=== PATIENT | female | born 1960 | race Caucasian/White ===

== ENCOUNTER 2024-09-08 12:53 | Inpatient (IN) | payer MEDICARE, MEDICAID ==
[~2024-09-08] VITALS: Ht 162.6 cm; Wt 65.5 kg
[2024-09-08 14:23] LABS: HEMATOCRIT. 30.4 % (36.0-48.0); HEMOGLOBIN. 8.8 g/dL (12.0-16.0); MEAN CORPUSCULAR HEMOGLOBIN 22.6 pg (28.0-32.0); MEAN CORPUSCULAR HGB CONC 29.1 g/dL (31.0-37.0); MEAN CORPUSCULAR VOLUME 77.7 fL (81.0-99.0); MEAN PLATELET VOLUME 9.7 fl (7.4-10.4); PLATELET 199 x1000/uL (130-400); RED BLOOD CELL COUNT 3.91 mill/uL (4.2-5.4); RED CELL DISTRIBUTION WIDTH 24.1 % (11.6-14.6); WHITE BLOOD COUNT 8.3 x1000/uL (4.5-11.0)
[2024-09-08 14:29] LABS: DIFFERENTIAL COMMENT 1
[2024-09-08 14:31] LABS: CALCIUM 8.2 mg/dL (8.7-10.4)
[2024-09-08 14:35] LABS: INR 1.2; PARTIAL THROMBOPLASTIN TIME 27.3 sec (23.4-31.0); PROTHROMBIN TIME 13.1 sec (9.6-11.0)
[2024-09-08 14:36] LABS: CREATININE 1.3 mg/dL (0.6-1.0)
[2024-09-08 14:39] LABS: POTASSIUM 6.3 mEq/L (3.5-5.1)
[2024-09-08] MEDS: CALCIUM GLUCONATE 100MG/ML 10ML VIAL IV ONE (15:01)
[2024-09-08 15:04] VITALS: PULSE 78; RESP 22; O2SAT 97
[2024-09-08] MEDS: ALBUTEROL (0.083%) 2.5MG/3ML NEB HHN ONE (15:04)
[2024-09-08] MEDS: INSULIN REGULAR (HUMULIN R) 1000UNITS/10ML VIAL IV ONE (15:05)
[2024-09-08] MEDS: SODIUM BICARBONATE 8.4% 50MEQ/50ML SYR IV ONE (15:06)
[2024-09-08] MEDS: DEXTROSE 50% WATER 50ML SYRINGE IV ONE (15:06)
[2024-09-08 15:17] LABS: PLATELET ESTIMATE NORMAL
[2024-09-08 15:18] LABS: HYPOCHROMASIA 1+
[2024-09-08] MEDS: SODIUM ZIRCONIUM CYCLOSILICATE 10GM/PACKET PO ONE (15:18)
[2024-09-08 15:19] LABS: ANISOCYTOSIS 1+
[2024-09-08 16:25] VITALS: RESP 37
[2024-09-08] MEDS: FUROSEMIDE 40MG/4ML VIAL IVP NR (16:28)
[2024-09-08 17:31] LABS: BG BASE EXCESS 7.9 mmol/L (-2.0-3.0); BG CARBOXYHEMOGLOBIN 1.2 % (0.5-1.5); BG DEOXYHEMOGLOBIN 1.9 % (0.0-5.0); BG FRACTION INSPIRED OXYGEN 100; BG HCO3 ACT 33.9 mmol/L (21.0-28.0); BG METHEMOGLOBIN 0.2 % (0.5-1.5); BG OXYGEN SATURATION 98.1 % (94.0-98.0); BG OXYHEMOGLOBIN 96.7 % (94.0-98.0); BG PCO2 56.4 mmHg (32.0-45.0); BG PH 7.397 (7.350-7.450); BG PO2 110.4 mmHg (83.0-108.0); BG SAMPLE SITE RIGHT RADIAL; BG TOTAL HEMOGLOBIN 9.2 g/dL (12.0-16.0); BG VENT MODE MASK - BIPAP
[2024-09-08] MEDS: BLOOD SUGAR DIAGNOSTIC STRIP TEST SCH (17:48)
[2024-09-08] MEDS: PIPERACILLIN/TAZO 3.375G/50ML 50 ML IV SCH (18:18)
[2024-09-08 18:40] LABS: POTASSIUM 5.4 mEq/L (3.5-5.1)
[2024-09-08 19:42] VITALS: RESP 28
[2024-09-08] MEDS ORDERED: FUROSEMIDE 20MG/2ML VIAL IVP SCH (21:00)
[2024-09-08] MEDS: FUROSEMIDE 40MG/4ML VIAL IVP SCH (22:00)
[2024-09-08] MEDS: GUAIFENESIN 600MG ER TABLET PO SCH (22:06)
[2024-09-08 23:45] VITALS: RESP 25
[2024-09-09] VITALS (18 sets, daily range): BP systolic 100–123; BP diastolic 58–65; PULSE 65–83; RESP 15–28; TEMP 36.14–36.44736; O2SAT 76–100
[2024-09-09] MEDS ORDERED: CLONIDINE 0.1MG TABLET PO PRN (00:30)
[2024-09-09] MEDS ORDERED: ACETAMINOPHEN 325MG TABLET PO PRN (00:30)
[2024-09-09] MEDS ORDERED: ONDANSETRON HCL 4MG/2ML INJ IV PRN (00:30)
[2024-09-09 03:15] LABS: *AMPHETAMINES SCREEN URINE NEGATIVE (NEGATIVE); *BARBITURATES SCREEN URINE NEGATIVE (NEGATIVE); *BENZODIAZEPINES SCREEN URINE NEGATIVE (NEGATIVE); *COCAINE SCREEN URINE NEGATIVE (NEGATIVE); METHADONE URINE SCREEN NEGATIVE (NEGATIVE); OPIATES URINE SCREEN NEGATIVE (NEGATIVE)
[2024-09-09 03:16] LABS: CANNABINOID URINE SCREEN NEGATIVE (NEGATIVE); ECSTASY MDMA SCREEN URINE NEGATIVE (NEGATIVE); PHENCYCLIDINE URINE SCREEN NEGATIVE (NEGATIVE)
[2024-09-09] MEDS: PANTOPRAZOLE SODIUM 40 MG/VIAL IV SCH (08:24)
[2024-09-09] MEDS: DEXTROSE 50% WATER 50ML SYRINGE IV PRN (08:24)
[2024-09-09] MEDS: ENOXAPARIN 40MG/0.4ML SYR SUBCUT SCH (08:26)
[2024-09-09] MEDS: HYDROCODONE/ACETAMINOPHEN 5/325MG TABLET PO PRN (09:05)
[2024-09-09] MEDS: FUROSEMIDE 40MG/4ML VIAL IVP SCH (12:45)
[2024-09-09] MEDS: DEXTROSE 50% WATER 50ML SYRINGE IV NR (15:01)
[2024-09-09] MEDS: DEXT 10% WATER 1,000 ML IV SCH (15:17)
[2024-09-09 15:52] LABS: POTASSIUM 6.1 mEq/L (3.5-5.1)
[2024-09-09 15:54] LABS: CALCIUM 8.6 mg/dL (8.7-10.4)
[2024-09-09 15:58] LABS: CREATININE 1.6 mg/dL (0.6-1.0)
[2024-09-09 16:01] LABS: CREATINE KINASE MB FRACTION 4.7 ng/mL (0.5-3.6)
[2024-09-09] MEDS: BLOOD SUGAR DIAGNOSTIC STRIP TEST SCH (16:28)
[2024-09-09] MEDS: SODIUM ZIRCONIUM CYCLOSILICATE 10GM/PACKET PO NR (16:32)
[2024-09-09 17:21] LABS: BG BASE EXCESS 3.8 mmol/L (-2.0-3.0); BG CARBOXYHEMOGLOBIN 0.3 % (0.5-1.5); BG DEOXYHEMOGLOBIN 5.9 % (0.0-5.0); BG FRACTION INSPIRED OXYGEN 100; BG HCO3 ACT 30.1 mmol/L (21.0-28.0); BG METHEMOGLOBIN 0.1 % (0.5-1.5); BG OXYGEN SATURATION 94.1 % (94.0-98.0); BG OXYHEMOGLOBIN 93.7 % (94.0-98.0); BG PCO2 54.2 mmHg (32.0-45.0); BG PH 7.362 (7.350-7.450); BG PO2 76.1 mmHg (83.0-108.0); BG SAMPLE SITE RIGHT RADIAL; BG TOTAL HEMOGLOBIN 9.7 g/dL (12.0-16.0); BG VENT MODE MASK - BIPAP
[2024-09-09] MEDS ORDERED: NALOXONE HCL 0.4MG/ML VIAL IV PRN (18:15)
[2024-09-09 18:36] LABS: HEMOGLOBIN. 8.4 g/dL (12.0-16.0); MEAN CORPUSCULAR HEMOGLOBIN 23.3 pg (28.0-32.0); MEAN CORPUSCULAR VOLUME 77.7 fL (81.0-99.0); MEAN PLATELET VOLUME 9.4 fl (7.4-10.4); PLATELET 146 x1000/uL (130-400); RED BLOOD CELL COUNT 3.61 mill/uL (4.2-5.4); RED CELL DISTRIBUTION WIDTH 25.4 % (11.6-14.6); WHITE BLOOD COUNT 4.7 x1000/uL (4.5-11.0)
[2024-09-09 18:39] LABS: DIFFERENTIAL COMMENT 1
[2024-09-09 18:51] LABS: CHLORIDE 103 mEq/L (98-107); POTASSIUM 5.1 mEq/L (3.5-5.1); SODIUM 138 mEq/L (136-145)
[2024-09-09 18:52] LABS: CALCIUM 8.4 mg/dL (8.7-10.4); CARBON DIOXIDE 32 mEq/L (21-32)
[2024-09-09 18:57] LABS: CREATININE 1.6 mg/dL (0.6-1.0); GLUCOSE 118 mg/dL (70-105); UREA NITROGEN BLOOD 53 mg/dL (9-23)
[2024-09-09 18:58] LABS: CREATINE KINASE MB FRACTION 4.9 ng/mL (0.5-3.6)
[2024-09-09 18:59] LABS: ALANINE AMINOTRANSFERASE 22 IU/L (10-49); ALBUMIN 3.2 g/dL (3.2-4.8); ASPARTATE AMINOTRANSFERASE 20 IU/L (<34); BILIRUBIN TOTAL 0.4 mg/dL (0.1-1.0); PROTEIN TOTAL 5.4 g/dL (6.0-8.3)
[2024-09-09 19:39] LABS: ANISOCYTOSIS 2+; HYPOCHROMASIA 1+; MICROCYTOSIS 1+; PLATELET ESTIMATE NORMAL
[2024-09-09] MEDS: IPRATROPIUM/ALBUTEROL 0.5-3(2.5)MG/3ML NEB HHN PRN (20:42)
[2024-09-09 23:16] LABS: CLARITY URINE CLOUDY (CLEAR); COLOR URINE YELLOW (YELLOW); GLUCOSE URINE NEGATIVE (NEGATIVE); KETONES URINE NEGATIVE (NEGATIVE); LEUKOCYTE ESTERASE URINE 1+ (NEGATIVE); NITRITE URINE NEGATIVE (NEGATIVE); OCCULT BLOOD URINE 2+ (NEGATIVE); PROTEIN URINE 1+ (NEGATIVE); SPECIFIC GRAVITY URINE 1.013 (1.005-1.030); UROBILINOGEN URINE 0.2 E.U./dL (0.2-1.0)
[2024-09-10] VITALS (13 sets, daily range): BP systolic 84–110; BP diastolic 44–68; PULSE 79–84; RESP 18–28; TEMP 36.05844–36.50292; O2SAT 67–82
[2024-09-10 05:48] LABS: SQUAMOUS EPITHELIAL CELL URINE FEW /lpf (RARE/1+)
[2024-09-10 05:51] LABS: RBC URINE 25-50 /hpf (0-2)
[2024-09-10 05:52] LABS: BACTERIA URINE TRACE
[2024-09-10 08:53] LABS: HEMOGLOBIN. 7.9 g/dL (12.0-16.0); MEAN CORPUSCULAR HEMOGLOBIN 23.5 pg (28.0-32.0); MEAN CORPUSCULAR HGB CONC 29.4 g/dL (31.0-37.0); MEAN PLATELET VOLUME 9.8 fl (7.4-10.4); PLATELET 152 x1000/uL (130-400); RED BLOOD CELL COUNT 3.37 mill/uL (4.2-5.4); RED CELL DISTRIBUTION WIDTH 25.7 % (11.6-14.6); WHITE BLOOD COUNT 6.8 x1000/uL (4.5-11.0)
[2024-09-10 08:55] LABS: DIFFERENTIAL COMMENT 1
[2024-09-10 10:51] LABS: BG BASE EXCESS -0.7 mmol/L (-2.0-3.0); BG CARBOXYHEMOGLOBIN 0.9 % (0.5-1.5); BG DEOXYHEMOGLOBIN 7.4 % (0.0-5.0); BG FRACTION INSPIRED OXYGEN 100; BG HCO3 ACT 26.8 mmol/L (21.0-28.0); BG OXYGEN SATURATION 92.5 % (94.0-98.0); BG OXYHEMOGLOBIN 91.7 % (94.0-98.0); BG PCO2 60.2 mmHg (32.0-45.0); BG PH 7.266 (7.350-7.450); BG SAMPLE SITE RIGHT RADIAL; BG TOTAL HEMOGLOBIN 9.1 g/dL (12.0-16.0); BG VENT MODE MASK - BIPAP
[2024-09-10 13:36] LABS: ANISOCYTOSIS 2+; PLATELET ESTIMATE NORMAL
[2024-09-10 14:25] LABS: POTASSIUM 5.7 mEq/L (3.5-5.1)
[2024-09-10] MEDS: METHYLPREDNISOLONE SOD SUCC 40MG/ML (ACT-O-VIAL) IV SCH (14:26)
[2024-09-10 14:32] LABS: CREATININE 1.7 mg/dL (0.6-1.0)
[2024-09-11] VITALS (9 sets, daily range): BP systolic 96–105; BP diastolic 57–62; PULSE 80–85; RESP 6–26; TEMP 35.8362–36.61404; O2SAT 71–74
[2024-09-11 06:31] LABS: POTASSIUM 4.7 mEq/L (3.5-5.1)
[2024-09-11 06:33] LABS: CALCIUM 8.2 mg/dL (8.7-10.4)
[2024-09-11 06:36] LABS: HEMOGLOBIN. 8.2 g/dL (12.0-16.0); MEAN CORPUSCULAR HEMOGLOBIN 23.5 pg (28.0-32.0); MEAN CORPUSCULAR HGB CONC 30.3 g/dL (31.0-37.0); MEAN CORPUSCULAR VOLUME 77.6 fL (81.0-99.0); MEAN PLATELET VOLUME 9.7 fl (7.4-10.4); PLATELET 116 x1000/uL (130-400); RED BLOOD CELL COUNT 3.48 mill/uL (4.2-5.4); RED CELL DISTRIBUTION WIDTH 26.3 % (11.6-14.6); WHITE BLOOD COUNT 6.5 x1000/uL (4.5-11.0)
[2024-09-11 06:38] LABS: CREATININE 1.8 mg/dL (0.6-1.0)
[2024-09-11 07:45] LABS: DIFFERENTIAL COMMENT 1
[2024-09-11] MEDS: IPRATROPIUM/ALBUTEROL 0.5-3(2.5)MG/3ML NEB HHN SCH (08:38)
[2024-09-11 13:58] LABS: BG BASE EXCESS 3.1 mmol/L (-2.0-3.0); BG CARBOXYHEMOGLOBIN 0.8 % (0.5-1.5); BG DEOXYHEMOGLOBIN 6.9 % (0.0-5.0); BG FRACTION INSPIRED OXYGEN 100; BG HCO3 ACT 29.8 mmol/L (21.0-28.0); BG METHEMOGLOBIN 0.3 % (0.5-1.5); BG PCO2 57.1 mmHg (32.0-45.0); BG PH 7.335 (7.350-7.450); BG PO2 71.7 mmHg (83.0-108.0); BG SAMPLE SITE RIGHT RADIAL; BG TOTAL HEMOGLOBIN 9.2 g/dL (12.0-16.0); BG TOTAL RESPIRATORY RATE 24 b/min; BG VENT MODE MASK - BIPAP
[2024-09-11 15:09] LABS: ANISOCYTOSIS 2+; MICROCYTOSIS 2+; PLATELET ESTIMATE SLIGHTLY DECREASED
[2024-09-11 15:20] LABS: OVALOCYTES 1+
[2024-09-11 20:50] LABS: HEPATITIS B SURFACE ANTIGEN NEGATIVE (Negative)
[2024-09-11 21:11] LABS: HEPATITIS B CORE AB IGM NEGATIVE (Negative)
[2024-09-11 21:14] LABS: HEPATITIS A AB IGM NEGATIVE (Negative)
[2024-09-11 21:15] LABS: HEPATITIS C AB NON REACTIVE (Neg) (Negative)
[2024-09-12] VITALS (44 sets, daily range): BP systolic 35–135; BP diastolic 13–108; PULSE 64–147; RESP 8–41; TEMP 35.5584–36.61404; O2SAT 66–99
[2024-09-12 07:50] LABS: POTASSIUM 4.1 mEq/L (3.5-5.1)
[2024-09-12 07:51] LABS: CALCIUM 8.4 mg/dL (8.7-10.4); HEMATOCRIT. 28.4 % (36.0-48.0); HEMOGLOBIN. 8.4 g/dL (12.0-16.0); MEAN CORPUSCULAR HEMOGLOBIN 23.3 pg (28.0-32.0); MEAN CORPUSCULAR HGB CONC 29.7 g/dL (31.0-37.0); MEAN CORPUSCULAR VOLUME 78.6 fL (81.0-99.0); MEAN PLATELET VOLUME 9.6 fl (7.4-10.4); PLATELET 115 x1000/uL (130-400); RED BLOOD CELL COUNT 3.61 mill/uL (4.2-5.4); RED CELL DISTRIBUTION WIDTH 25.6 % (11.6-14.6); WHITE BLOOD COUNT 9.4 x1000/uL (4.5-11.0)
[2024-09-12 07:56] LABS: CREATININE 1.6 mg/dL (0.6-1.0)
[2024-09-12 08:47] LABS: DIFFERENTIAL COMMENT 1
[2024-09-12 09:12] LABS: COMPLEMENT C3 101 mg/dL (82-167); COMPLEMENT C4 31 mg/dL (12-38)
[2024-09-12] MEDS ORDERED: HYDR200T35 PO (09:54)
[2024-09-12] MEDS: ENOXAPARIN 30MG/0.3ML SYR SUBCUT SCH (10:25)
[2024-09-12] MEDS: HYDROXYCHLOROQUINE SULFATE 200MG TABLET PO SCH (10:50)
[2024-09-12] MEDS ORDERED: VANCOMYCIN 1.25GM PMX (XELLIA) 250 ML IV NR (12:00)
[2024-09-12] MEDS ORDERED: LIDOCAINE HCL 1% 10 MG/ML 10ML VIAL ONE ×2 (13:29→13:34)
[2024-09-12] MEDS ORDERED: HEPARIN 1000 UNITS/ML 10ML ONE (13:34)
[2024-09-12 14:24] LABS: ALANINE AMINOTRANSFERASE 29 IU/L (10-49); ALBUMIN 3.3 g/dL (3.2-4.8); ASPARTATE AMINOTRANSFERASE 36 IU/L (<34); BILIRUBIN DIRECT 0.1 mg/dL (<=3.0); BILIRUBIN TOTAL 0.3 mg/dL (0.1-1.0); PROTEIN TOTAL 5.7 g/dL (6.0-8.3)
[2024-09-12 14:41] LABS: PLATELET ESTIMATE SLIGHTLY DECREASED
[2024-09-12 14:42] LABS: ANISOCYTOSIS 2+; MICROCYTOSIS 1+
[2024-09-12 15:07] LABS: ANTI-NUCLEAR ANTIBODIES DIRECT Positive (Negative)
[2024-09-12] MEDS: NOREPINEPHRINE 32 MG in SODIUM CHLORIDE 0.9% 218 ML IV PRN (16:18)
[2024-09-12] MEDS ORDERED: VASOPRESSIN 20 UNIT in SODIUM CHLORIDE 0.9% 99 ML IV PRN (17:30)
[2024-09-12 19:10] LABS: BG BASE EXCESS -2.4 mmol/L (-2.0-3.0); BG CARBOXYHEMOGLOBIN 0.3 % (0.5-1.5); BG DEOXYHEMOGLOBIN 13.7 % (0.0-5.0); BG FRACTION INSPIRED OXYGEN 100; BG HCO3 ACT 24.3 mmol/L (21.0-28.0); BG METHEMOGLOBIN 0.3 % (0.5-1.5); BG OXYGEN SATURATION 86.2 % (94.0-98.0); BG OXYHEMOGLOBIN 85.7 % (94.0-98.0); BG PCO2 50.7 mmHg (32.0-45.0); BG PH 7.299 (7.350-7.450); BG PO2 56.2 mmHg (83.0-108.0); BG SAMPLE SITE RIGHT RADIAL; BG TOTAL HEMOGLOBIN 10.7 g/dL (12.0-16.0); BG VENT MODE VENT - AC
[2024-09-12] MEDS: PROPOFOL 10MG/ML 100ML 100 ML IV PRN (20:09)
[2024-09-12] MEDS ORDERED: PIPERACILLIN/TAZO 3.375G/50ML IV SCH (21:00)
[2024-09-12] MEDS ORDERED: CEFEPIME HCL 1000MG VIAL IM SCH (21:00)
[2024-09-12 21:05] LABS: LACTIC ACID 5.2 mmol/L (0.4-2.0)
[2024-09-12] MEDS: CEFEPIME 1GM/50ML 50 ML IV SCH (21:44)
[2024-09-12] MEDS: PHENYLEPHRINE 50MG/250ML PMX 250 ML IV PRN (22:10)
[2024-09-12] MEDS ORDERED: PHENYLEPHRINE 50MG/250ML PMX 250 ML IV SCH (23:15)
[2024-09-12] MEDS ORDERED: EPINEPHRINE 10 MG in SODIUM CHLORIDE 0.9% 240 ML IV PRN (23:15)
[2024-09-12] MEDS: DEXT 10% WATER 1,000 ML IV SCH (23:47)
[2024-09-13] VITALS (17 sets, daily range): BP systolic 0–123; BP diastolic 0–111; PULSE 0–109; RESP 0–53
[2024-09-13 00:03] LABS: BG BASE EXCESS -13.1 mmol/L (-2.0-3.0); BG CARBOXYHEMOGLOBIN 0.8 % (0.5-1.5); BG DEOXYHEMOGLOBIN 44.5 % (0.0-5.0); BG FRACTION INSPIRED OXYGEN 100; BG HCO3 ACT 17.8 mmol/L (21.0-28.0); BG METHEMOGLOBIN 0.1 % (0.5-1.5); BG OXYGEN SATURATION 55.1 % (94.0-98.0); BG OXYHEMOGLOBIN 54.6 % (94.0-98.0); BG PCO2 74.9 mmHg (32.0-45.0); BG PH 6.995 (7.350-7.450); BG PO2 42.9 mmHg (83.0-108.0); BG SAMPLE SITE RIGHT BRACHIAL; BG TOTAL HEMOGLOBIN 8.1 g/dL (12.0-16.0); BG TOTAL RESPIRATORY RATE 25 b/min; BG VENT MODE VENT - AC
[2024-09-13] MEDS ORDERED: DOPAMINE 800MG PREMIX (DOUBLE) 250 ML IV PRN (00:45)
[2024-09-13] MEDS ORDERED: DOPAMINE 400MG/250ML PREMIX 250 ML IV ONE (00:47)
[2024-09-13] MEDS ORDERED: NITROGLYCERIN OINT 1GM/INCH UDPKT TD SCH (06:00)
[2024-09-13] MEDS ORDERED: FUROSEMIDE 20MG/2ML VIAL IVP SCH (09:00)
[2024-09-14 06:16] LABS: G6PD RBC 3.85 x10E6/uL (3.77-5.28)
[2024-09-14 13:11] LABS: ANTI-DNA DOUBLE STRANDED QUANT < 1 IU/mL (0-9); RNP ANTIBODY 7.7 AI (0.0-0.9); SMITH ANTIBODY 0.4 AI (0.0-0.9)
== END 2024-09-13 05:00 | DRG 208 ==
LOC: ER 13:07 → EDBEDREQ 13:47 → 5EST 15:01 → EDBEDREQ 15:24 → EDBEDREQTM 15:24 → EDBEDREQSVC 21:43 → CVICU 09-12 15:18
PROVIDERS: ADMIT Internal Medicine; ATTEND Internal Medicine
PROC: 5A0935A Assistance with Respiratory Ventilation, Less than 24 Consecutive Hours, High Flow/Velocity Cannula (ICD-10-PCS; 2024-09-08)
PROC: 5A09457 Assistance with Respiratory Ventilation, 24-96 Consecutive Hours, Continuous Positive Airway Pressure (ICD-10-PCS; principal; 2024-09-09)
PROC: 5A1935Z Respiratory Ventilation, Less than 24 Consecutive Hours (ICD-10-PCS; 2024-09-12)
PROC: 0BH17EZ Insertion of Endotracheal Airway into Trachea, Via Natural or Artificial Opening (ICD-10-PCS; 2024-09-12)
PROC: 02HV33Z Insertion of Infusion Device into Superior Vena Cava, Percutaneous Approach (ICD-10-PCS; 2024-09-12)
PROC: B548ZZA Ultrasonography of Superior Vena Cava, Guidance (ICD-10-PCS; 2024-09-12)
PROC: 5A1D70Z Performance of Urinary Filtration, Intermittent, Less than 6 Hours Per Day (ICD-10-PCS; 2024-09-12)
PROC: 5A12012 Performance of Cardiac Output, Single, Manual (ICD-10-PCS; 2024-09-13)
DX: J96.02 Acute respiratory failure with hypercapnia (principal); J18.9 Pneumonia, unspecified organism; I50.43 Acute on chronic combined systolic (congestive) and diastolic (congestive) heart failure; N18.6 End stage renal disease; I13.2 Hypertensive heart and chronic kidney disease with heart failure and with stage 5 chronic kidney disease, or end stage renal disease; N17.9 Acute kidney failure, unspecified; E87.1 Hypo-osmolality and hyponatremia; I73.01 Raynaud's syndrome with gangrene; N39.0 Urinary tract infection, site not specified; R18.8 Other ascites; K74.60 Unspecified cirrhosis of liver; S61.203A Unspecified open wound of left middle finger without damage to nail, initial encounter; Z99.2 Dependence on renal dialysis; E87.5 Hyperkalemia; S39.82XA Other specified injuries of lower back, initial encounter; E83.51 Hypocalcemia; M32.9 Systemic lupus erythematosus, unspecified; D50.9 Iron deficiency anemia, unspecified; D69.6 Thrombocytopenia, unspecified; X58.XXXA Exposure to other specified factors, initial encounter; I95.9 Hypotension, unspecified; I27.20 Pulmonary hypertension, unspecified; E16.2 Hypoglycemia, unspecified; Z79.82 Long term (current) use of aspirin; Y93.89 Activity, other specified; Y92.89 Other specified places as the place of occurrence of the external cause; Y99.8 Other external cause status
CPT/HCPCS: 31500; 36415; 36556; 36600; 71045; 73130; 76705; 76770; 76937; 80048; 80053; 80076; 80305; 81003; 82375; 82550; 82553; 82805; 82955; 82962; 83036; 83520; 83605; 83880; 83930; 84132; 84145; 84443; 84484; 85025; 85041; 85379; 85651; 86038; 86160; 86225; 86235; 86256; 86332; 86705; 86709; 86880; 87070; 87077; 87186; 87340; 90935; 93005; 93306; 93923; 93970; 94003; 94640; 94660; 99291; C1752; C1887; J0610; J0692; J1265; J1642; J1644; J1650; J1815; J1940; J2470; J2543; J2704; J2920; J3370; J3490; J7050